=== PATIENT | female | born 1995 | race Caucasian/White ===

== ENCOUNTER 2016-12-26 17:31 | Emergency (ER) | payer OTHER ==
--- NOTE | ~2016-12-26 | CR116 ---
[facility]. [facility] A Service of [facility] & [facility] RADIOLOGY TEXT RESULTS PATIENT: STEFFANIE HERNANDEZ LOCATION: SED : [birth year] UNIT #: [id number] AGE: [address]: ROMERO GRIJALVA SEX: F ORDER DR: [id number] [place] [id number] E MR#: [id number] #: [id number] NAME: STEFFANIE HERNANDEZ : 1995 SEX: F STUDY DATE/TIME: 12/26/2016 17:47 UNIT: SED ROOM: STUDY DESCRIPTION: CR Finger 2 View Thumb Lt Attending Physician: Romero Grijalva Ordering Physician: Dheeraj Fiore M.D. Primary Care Physician: Roly Dawson M.D. MEDICAL IMAGING REPORT This report is preliminary unless electronic signature is present. EXAM Left thumb 2 views, 12/26/2016 HISTORY Puncture wound left thumb after a dog bite today, injured nail bed. FINDINGS 2 views of the left thumb demonstrate a comminuted minimally-displaced fracture through the tuft of the left first distal phalanx. No other fracture or dislocation is seen. The bones are normally mineralized. There is soft tissue swelling overlying the fracture. IMPRESSION Comminuted displaced fracture through the tuft of the first distal phalanx. Dictated by... Karan Guaman M.D. THIS IS AN ELECTRONICALLY VERIFIED REPORT Karan Guaman M.D. at 12/27/2016 2:19 PM KENYATTA/gail TD: 12/26/2016 23:44 JOB #: [id number] MEDICAL IMAGING REPORT Page 1 of 1
[~2016-12-26 17:31] MED LIST: BACTRIM DS TABL1 TA1 PO; BIRTH CONTROL PILL; FLOMAX0.4 M1 PO; NORCO1 TAB 10/3 PO
== END 2016-12-26 19:07 ==
LOC: SED 17:31
DX: S62.522A Displaced fracture of distal phalanx of left thumb, initial encounter for closed fracture (principal); W54.0XXA Bitten by dog, initial encounter; Z23 Encounter for immunization
CPT/HCPCS: 73140; 90471; 90715; 99284